=== PATIENT | male | born 1975 | race Caucasian/White ===

== ENCOUNTER → 2019-05-20 | Outpatient (CLI) | payer OTHER ==
[~2019-05-20] MED LIST: ASPI325 PO; Amoxicillin500 MG PO; Budeprion Sr150 MG; QUET200 PO
== END | disposition home or self-care (01) ==
LOC: LAB SHORT 16:07 → LAB 16:07
DX: J02.9 Acute pharyngitis, unspecified (principal)
CPT/HCPCS: 87081

== ENCOUNTER 2019-07-23 15:10 | Emergency (ER) | payer OTHER ==
[~2019-07-23] VITALS: Ht 190.5 cm; Wt 108.9 kg
[2019-07-23] MEDS ORDERED: CLOTRIMAZOLE10 ML RIGHTEAR (15:23)
[2019-07-23] MEDS ORDERED: NEOPOLHCSU RIGHTEAR (15:36)
== END 2019-07-23 15:49 | disposition home or self-care (01) ==
LOC: ER 15:10
DX: B36.9 Superficial mycosis, unspecified (principal); H62.41 Otitis externa in other diseases classified elsewhere, right ear; Z88.5 Allergy status to narcotic agent; Z79.899 Other long term (current) drug therapy; Z79.82 Long term (current) use of aspirin; F17.200 Nicotine dependence, unspecified, uncomplicated
CPT/HCPCS: 99282

== ENCOUNTER 2020-04-21 15:13 | Emergency (ER) | payer OTHER ==
[~2020-04-21] VITALS: Ht 190.5 cm; Wt 115.2 kg
[~2020-04-21 15:13] MED LIST changes: +CLOTRIMAZOLE10 ML RIGHTEAR; +METOPROLOL SUCC25 MG PO; +NEOPOLHCSU RIGHTEAR; +NITR.4SL SL
[2020-04-21] MEDS ORDERED: OCUFLOX5 ML (15:25)
[2020-04-21] MEDS ORDERED: Amoxicillin500 MG PO (15:25)
[2020-04-21] MEDS ORDERED: NAPR500 PO (15:27)
== END 2020-04-21 15:30 | disposition home or self-care (01) ==
LOC: ER 15:13
DX: H60.92 Unspecified otitis externa, left ear (principal); F17.200 Nicotine dependence, unspecified, uncomplicated; Z88.8 Allergy status to other drugs, medicaments and biological substances; Z88.5 Allergy status to narcotic agent
CPT/HCPCS: 99282

== ENCOUNTER 2021-03-20 22:32 | Emergency (ER) | payer OTHER ==
[~2021-03-20] VITALS: Ht 190.5 cm; Wt 127.0 kg
[~2021-03-20 22:32] MED LIST changes: +NAPR500 PO; +OCUFLOX5 ML
[2021-03-21 00:20] LABS: BASOPHILS PERCENT AUTO 1 % (0-2); EOSINOPHILS ABSOLUTE AUTO 0.23 K/mm3 (0.00-0.68); EOSINOPHILS PERCENT AUTO 1 % (0-6); Hemoglobin 15.7 g/dL (13.5-17.5); Mean Corpuscular HGB 30.7 pg (26.0-34.0); Mean Corpuscular HGB Conc 35.7 g/dL (31.5-36.5); Mean Corpuscular Volume 86 fL (80-100); Platelet Count 291 K/mm3 (150-400); RDW Coefficient Variation 12.2 % (11.7-14.2); RDW Standard Deviation 38.3 fL (35.1-46.3); Red Blood Cell Count 5.11 M/mm3 (4.30-5.90); White Blood Cell Count 16.69 K/mm3 (4.00-11.30)
[2021-03-21 00:21] LABS: IMMATURE GRAN ABSOLUTE AUTO 0.14 K/mm3 (0.00-0.10); IMMATURE GRAN PERCENT AUTO 1 % (0-1); LYMPHOCYTES ABSOLUTE AUTO 5.09 K/mm3 (0.84-5.20); LYMPHOCYTES PERCENT AUTO 31 % (21-46); MONOCYTES ABSOLUTE AUTO 1.53 K/mm3 (0.16-1.47); MONOCYTES PERCENT AUTO 9 % (4-13); NEUTROPHILS PERCENT AUTO 58 % (41-73)
[2021-03-21 00:39] LABS: Alanine Aminotransfer (ALT/SGP 82 U/L (12-78); Albumin, Blood 4.3 g/dL (3.4-5.0); Albumin/Globulin Ratio 1.1 (0.8-1.8); Alk Phos 144 U/L (50-136); Anion Gap 5 mmol/L (6-16); Aspartate Aminotrans (AST/SGOT 35 U/L (12-37); Bilirubin, Total 0.4 mg/dL (0.1-1.0); Blood Urea Nitrogen 19 mg/dL (8-24); Bun/Creatinine Ratio 18.4 (12.0-20.0); CO2, Blood 28 mmol/L (21-32); Chloride, Blood 107 mmol/L (98-108); Creatinine, Blood 1.03 mg/dL (0.60-1.20); Glomerular Filtration Rate >60 (60-); Glucose, Blood 107 mg/dL (70-99); Sodium, Blood 140 mmol/L (136-145); Total Protein, Blood 8.3 g/dL (6.4-8.2)
[2021-03-21] MEDS ORDERED: ONDA4ODT MM (02:44)
== END 2021-03-21 03:10 | disposition home or self-care (01) ==
LOC: ER 22:32
PROVIDERS: Physician Assistant
DX: F45.8 Other somatoform disorders (principal); I10 Essential (primary) hypertension; F17.200 Nicotine dependence, unspecified, uncomplicated; Z88.6 Allergy status to analgesic agent; Z88.1 Allergy status to other antibiotic agents; Z88.5 Allergy status to narcotic agent
CPT/HCPCS: 80053; 83690; 85025; 99283

== ENCOUNTER 2022-06-08 12:29 | Emergency (ER) | payer OTHER ==
[~2022-06-08] VITALS: Ht 190.5 cm; Wt 108.9 kg
[~2022-06-08 12:29] MED LIST changes: +ONDA4ODT MM
[2022-06-08] MEDS ORDERED: CEPH500 PO (12:53)
== END 2022-06-08 13:07 | disposition home or self-care (01) ==
LOC: ER 12:29
DX: N49.2 Inflammatory disorders of scrotum (principal); I10 Essential (primary) hypertension; I25.2 Old myocardial infarction; F17.210 Nicotine dependence, cigarettes, uncomplicated; Z88.5 Allergy status to narcotic agent; Z88.8 Allergy status to other drugs, medicaments and biological substances; Z79.899 Other long term (current) drug therapy
CPT/HCPCS: 99282